=== PATIENT | female | born 1940 | race Hispanic/Latino ===

== ENCOUNTER 2018-10-21 10:54 | Observation (INO) | payer MEDICARE ==
[~2018-10-21] VITALS: Ht 149.9 cm; Wt 58.7 kg
[2018-10-21] MEDS ORDERED: IPRATROPIUM/ALBUTEROL SULFATE 3 ML SOLUTION IH ONE (11:32)
[2018-10-21 12:13] LABS: BASOPHILS % (AUTO) 0.6 % (0.0-5.0); HEMATOCRIT 39.7 % (36-48); LYMPHOCYTES % (AUTO) 37.3 % (21.0-51.0); MEAN CORPUSCULAR HEMOGLOBIN 31.9 pg (27.0-33.0); MEAN CORPUSCULAR HGB CONC 34.2 g/dL (32.0-36.0); MEAN CORPUSCULAR VOLUME 93.4 fL (79-99); MONOCYTES % (AUTO) 5.9 % (3.0-13.0); NEUTROPHILS % (AUTO) 54.2 % (40.0-77.0); NUCLEATED RED BLOOD CELLS 0.1 % (0.0-0.19); PLATELET COUNT (AUTO) 186 K/uL (130-400); RED BLOOD CELL COUNT(AUTO) 4.26 MIL/uL (4.00-5.50); RED CELL DISTRIBUTION WIDTH 14.4 % (11.0-15.5); WHITE BLOOD COUNT (AUTO) 7.9 K/uL (4.8-10.8)
[2018-10-21] MEDS ORDERED: NITROGLYCERIN 0.4 MG SL TAB SL PRN (12:15)
[2018-10-21] MEDS ORDERED: ZOLPIDEM TARTRATE 5 MG TAB PO PRN (12:15)
[2018-10-21] MEDS ORDERED: SODIUM CHLORIDE 0.9% 10 ML VIAL IVP SCH (12:15)
[2018-10-21] MEDS ORDERED: ACETAMINOPHEN 325 MG TAB PO PRN (12:15)
[2018-10-21] MEDS ORDERED: ONDANSETRON HCL 4 MG/2 ML VIAL IVP PRN (12:15)
[2018-10-21] MEDS ORDERED: ALBUTEROL SULFATE 0.083% 2.5 MG/3 ML INH IH PRN (12:15)
[2018-10-21 12:27] LABS: POTASSIUM 4.2 mmol/L (3.5-5.1)
[2018-10-21 12:40] LABS: ALBUMIN 3.4 g/dL (3.5-5.0); BILIRUBIN,DIRECT 0.1 mg/dL (0.0-0.3); BILIRUBIN,TOTAL 0.6 mg/dL (0.2-1.0); THYROID STIMULATING HORMONE 3.53 uIU/mL (0.36-3.74)
[2018-10-21 13:15] VITALS: BP 163/65
--- NOTE | 2018-10-21 14:30 | NUR ---
WALKED PATIENT AROUND UNIT WITH NO 02. HR WOULD FLUCTUATE FROM 45 TO 68BPM. IRREGULAR, AFLUTTER. WALKED PATIENT FOR 10MIN.
[2018-10-21 15:19] VITALS: BP 148/53
[2018-10-21] MEDS ORDERED: ASPI-1005 PO (15:38)
[2018-10-21] MEDS ORDERED: CORTSUSP OT (15:38)
[2018-10-21] MEDS ORDERED: DIFL5DRO OP (15:38)
[2018-10-21] MEDS: CEFTRIAXONE SODIUM 1 GM IVP SCH (15:45)
[2018-10-21] MEDS ORDERED: REGADENOSON 0.4 MG/5 ML PF SYG IVP SCH (15:45)
[2018-10-21] MEDS: FUROSEMIDE 10 MG/ML 2ML VIAL IV SCH (15:45)
[2018-10-21] MEDS: IPRATROPIUM/ALBUTEROL SULFATE 3 ML SOLUTION IH SCH ×2 (18:00→22:04)
[2018-10-21 19:00] VITALS: BP 159/81
[2018-10-21] MEDS: FAMOTIDINE 20MG TAB 20 MG TAB PO SCH (20:24)
[2018-10-21 23:00] VITALS: BP 131/55
[2018-10-22 03:00] VITALS: BP 123/48
[2018-10-22] MEDS: FUROSEMIDE 10 MG/ML 2ML VIAL IV SCH (03:05)
[2018-10-22] MEDS: IPRATROPIUM/ALBUTEROL SULFATE 3 ML SOLUTION IH SCH (06:42)
[2018-10-22 07:00] VITALS: BP 138/65
--- NOTE | 2018-10-22 08:40 | NUR ---
DR. JONES VISITED AND ASSESSED PATIENT. UPDATED ON PATIENT LABS AND STATUS. DR. JONES EXPLAINING PACEMAKER PLACEMENT TO PATIENT AND DAUGHTER. ALL QUESTIONS FROM PATIENT AND FAMILY WERE ANSWERED.
[2018-10-22] MEDS: CEFTRIAXONE SODIUM 1 GM IVP SCH (08:49)
[2018-10-22] MEDS: FAMOTIDINE 20MG TAB 20 MG TAB PO SCH (08:49)
[2018-10-22 09:34] LABS: BASOPHILS % (AUTO) 1.2 % (0.0-5.0); EOSINOPHILS % (AUTO) 2.3 % (0.0-8.0); LYMPHOCYTES % (AUTO) 18.9 % (21.0-51.0); MEAN CORPUSCULAR HEMOGLOBIN 31.7 pg (27.0-33.0); MEAN CORPUSCULAR HGB CONC 33.3 g/dL (32.0-36.0); MEAN CORPUSCULAR VOLUME 95.2 fL (79-99); MONOCYTES % (AUTO) 8.1 % (3.0-13.0); NEUTROPHILS % (AUTO) 69.5 % (40.0-77.0); NUCLEATED RED BLOOD CELLS 0.1 % (0.0-0.19); PLATELET COUNT (AUTO) 205 K/uL (130-400); RED CELL DISTRIBUTION WIDTH 14.3 % (11.0-15.5); WHITE BLOOD COUNT (AUTO) 6.9 K/uL (4.8-10.8)
[2018-10-22 09:48] LABS: ALBUMIN 3.3 g/dL (3.5-5.0); BILIRUBIN,TOTAL 0.3 mg/dL (0.2-1.0); CREATININE 1.3 mg/dL (0.5-1.5); MAGNESIUM 2.2 mg/dL (1.80-2.40); POTASSIUM 3.2 mmol/L (3.5-5.1); TOTAL PROTEIN, SERUM 7.3 g/dL (6.0-8.3)
[2018-10-22 11:00] VITALS: BP 146/64
--- NOTE | 2018-10-22 14:00 | NUR ---
GAVE DC INSTRUCTION TO PATIENT. PATIENT TAKEN DOWNSTAIRS.
== END 2018-10-22 14:00 | disposition home or self-care (01) ==
LOC: EDH 10:54 → EDHIP 11:11 → 2DH 13:06
PROVIDERS: ADMIT Internal Medicine; ATTEND Internal Medicine
DX: I44.2 Atrioventricular block, complete (principal); I10 Essential (primary) hypertension; I44.7 Left bundle-branch block, unspecified; R06.02 Shortness of breath; I48.4 Atypical atrial flutter; R29.6 Repeated falls; W01.0XXA Fall on same level from slipping, tripping and stumbling without subsequent striking against object, initial encounter; Y93.89 Activity, other specified; Y92.410 Unspecified street and highway as the place of occurrence of the external cause; Y99.8 Other external cause status; Z98.41 Cataract extraction status, right eye; Z98.51 Tubal ligation status
CPT/HCPCS: 36415 ×2; 71046; 78452; 80048; 80053; 80076; 82550; 83735; 83880; 84443; 84484; 85025 ×2; 93005; 93017; 93306; 94640 ×3; 94664; 96374; 96375; 96376; A4600; A9500 ×2; G0378 ×27; J0696 ×2; J1940 ×2; J2785